=== PATIENT | male | born 1975 | race Caucasian/White ===

== ENCOUNTER 2021-07-21 00:20 | Day surgery (SDC) | payer MEDICARE, SELFPAY ==
[2021-04-16 14:30] VITALS: BMI 35.4
[2021-07-16 14:40] VITALS: BMI 35.4
[2021-07-21] VITALS (8 sets, daily range): BP systolic 116–136; BP diastolic 67–97; PULSE 71–82; RESP 10–20; TEMP 36.2–36.4; O2SAT 94–100; BMI 35.8
--- NOTE | 2021-07-21 09:59 | ECG_ITS ---
Measurements Intervals [place] Rate: 68 P: 52 PA: 168 QRS: -10 QRSD: 97 T: 5 QT: 381 QTc: 406 Interpretive Statements SINUS RHYTHM LOW QRS VOLTAGE IN PRECORDIAL LEADS BASELINE ARTIFACT- I, III BORDERLINE ECG Electronically Signed On 07-21-2021 10:47:19 CDT by Remi Magdaleno D.O.
[2021-07-21 10:02] LABS: Glucose Point of Care 146 mg/dl (65-105)
[2021-07-21] MEDS: LACTATED RINGERS 1,000 ML 30 ML IV CONT ×2 (10:25→12:21)
[2021-07-21] MEDS: ACETAMINOPHEN 500 MG TABLET 1000 MG PO (10:32)
[2021-07-21] MEDS: KETOROLAC 15 MG/ML VIAL (*BKC) IV PUSH (10:35)
--- NOTE | 2021-07-21 11:05 | PM.IMHP ---
H&P: HPI History of Present Illness Date/Time: 07/21/21 11:05 Chief Complaint: Ventral hernia Narrative: This is a 45-year-old man who presents for ventral hernia repair. He denies any changes since last seen in office. Review of Systems Review of Systems: All systems reviewed & are unremarkable except as noted in HPI and below Constitutional: Constitutional: Denies chills, Denies fever(s), Denies headache(s) and Denies weight loss Eyes: Eyes: Denies change in vision ENT: Denies dizziness, Denies headache(s), Denies neck mass and Denies throat swelling Cardiovascular: Cardiovascular: Denies chest pain, Denies lightheadedness and Denies dyspnea Respiratory: Respiratory: Denies cough, Denies dyspnea and Denies wheezing Gastrointestinal: Gastrointestinal: Denies abdominal pain, Denies change in bowel habits, Denies nausea and Denies vomiting Genitourinary: Genitourinary: Denies hematuria and Denies dysuria Musculoskeletal: Musculoskeletal: Reports as per HPI Integumentary/Breasts: Skin/Breast: Reports as per HPI Neurologic: Denies dizziness and Denies headache(s) Allergic/Immunologic: Allergic/Immunologic: Denies throat swelling and Denies wheezing PMFSH Past Medical History Medical History Advanced osteoarthritis of spine Diabetes mellitus GERD (gastroesophageal reflux disease) Surgical History Surgical History History of fusion of thoracic spine History of lumbar fusion posterior approach Hx of appendectomy Hx of knee surgery Family History Family History Father Exposure to Agent [place] Mother Lung cancer Sibling Anabolic steroid abuse Social History Social History Smoking status: Never smoker Alcohol intake: never Substance use: never Substance use type: does not use Living arrangements: with family Additional living arrangements comments: Spiritual care concerns: No Meds Home Medications and Allergies Home Medications Medication Instructions Recorded Confirmed Type insulin degludec 100 unit/mL 20 unit SUBCUT QAM 04/09/21 07/16/21 History subcutaneous solution montelukast 10 mg tablet 10 mg PO HS 04/09/21 07/16/21 History pantoprazole 40 mg tablet,delayed 40 mg PO HS 04/09/21 07/16/21 History release albuterol sulfate [Ventolin HFA] 2 puff INHALATION Q6-8H PRN 04/16/21 07/16/21 History etodolac 500 mg PO HS 04/16/21 07/16/21 History gabapentin 100 mg PO QAM 04/16/21 07/16/21 History ondansetron HCl 8 mg PO QAM 04/16/21 07/16/21 History cetirizine 10 mg PO DAILY 07/16/21 07/16/21 History insulin aspart U-100 [Novolog 1 sliding scale dose SUBCUT 07/16/21 07/16/21 History Flexpen U-100 Insulin] USEASDIRECTD Allergies Allergy/AdvReac Type Severity Reaction Status Date / Time No Known Allergies Allergy Verified 07/21/21 10:03 Exam Const: General: no acute distress and alert Orientation/consciousness: patient oriented x3 HENMT: Head: normocephalic and atraumatic Ears: hearing grossly normal bilaterally General nose exam: Normal nares present Mouth: Yes Normal oral and palatal mucosa present Eyes: Periorbital: periorbital findings normal Sclera: sclerae normal EOM: EOMs intact bilaterally Neck: Neck: normal visual inspection, no lymphadenopathy and trachea midline Chest: Chest palpation & inspection: normal inspection of the chest Resp: Effort & Inspection: normal respiratory effort Auscultation: clear to auscultation bilaterally Cardio: Jugular venous distension: no JVD Rate: regular rate Rhythm: regular rhythm Heart sounds: S1 normal heart sound present and S2 normal heart sound present Peripheral pulses: Peripheral pulses 2+ throughout GI: Inspection: normal to inspection GI Palp: Yes
--- NOTE | 2021-07-21 11:07 | WPDHPUPDATE1 ---
History and Physical Update Update Date/Time: 07/21/21 11:07 History and Physical has been reviewed, including an updated exam of the patient. There are NO changes in the patient's condition. Risks, benefits, and alternatives have been discussed and questions answered. Patient agrees to proceed with procedure.
--- NOTE | 2021-07-21 11:10 | SUR.PREOP ---
1110- Updated patient start time for procedure will be delayed. Patient verbalized understanding.
--- NOTE | 2021-07-21 11:21 | WPDANESEPPF ---
Anes - Initial Pre Proc Eval Procedure: Operation Date: 04/29/21 10:30 Proposed Procedures p Ventral Hernia Repair with Mesh - Arthur Kramer DO Operation Date: 07/21/21 11:00 Proposed Procedures p Ventral Hernia Repair with Mesh - Arthur Kramer DO Date/Time: 07/21/21 11:21 Surgeon: Arthur Kramer DO Pre Op Diagnosis: ventral hernia Patient Data Age: 45 Gender: M Height: 1.75 m Weight: 110.1 kg Allergies Allergy/AdvReac Type Severity Reaction Status Date / Time No Known Allergies Allergy Verified 07/21/21 10:03 Home Medications Medication Instructions Recorded Confirmed Type insulin degludec 100 unit/mL 20 unit SUBCUT QAM 04/09/21 07/16/21 History subcutaneous solution montelukast 10 mg tablet 10 mg PO HS 04/09/21 07/16/21 History pantoprazole 40 mg tablet,delayed 40 mg PO HS 04/09/21 07/16/21 History release albuterol sulfate [Ventolin HFA] 2 puff INHALATION Q6-8H PRN 04/16/21 07/16/21 History etodolac 500 mg PO HS 04/16/21 07/16/21 History gabapentin 100 mg PO QAM 04/16/21 07/16/21 History ondansetron HCl 8 mg PO QAM 04/16/21 07/16/21 History cetirizine 10 mg PO DAILY 07/16/21 07/16/21 History insulin aspart U-100 [Novolog 1 sliding scale dose SUBCUT 07/16/21 07/16/21 History Flexpen U-100 Insulin] USEASDIRECTD Laboratory Tests 07/21/21 09:58 POC Capillary Glucose 146 mg/dl H mg/dl (65-105) Patient hx anesthesia problems: none Family hx anesthesia problems: none Results Review: All pre-operative results and documents have been reviewed as part of the pre-operative evaluation. [facility] Past Medical History Medical History Advanced osteoarthritis of spine Diabetes mellitus GERD (gastroesophageal reflux disease) Surgical History Surgical History History of fusion of thoracic spine History of lumbar fusion posterior approach Hx of appendectomy Hx of knee surgery Family History Family History Father Exposure to Agent [place] Mother Lung cancer Sibling Anabolic steroid abuse Social History Social History Smoking status: Never smoker Alcohol intake: never Substance use: never Substance use type: does not use Living arrangements: with family Additional living arrangements comments: Spiritual care concerns: No Anes - Eval Final PreProcedure Day of Procedure 07/21/21 11:21 Patient weight: obese Heart: regular rate and rhythm Lungs: clear to auscultation Airway: Mallampati scale class III Neurological: alert and oriented Last oral intake: >/= 8 hours ASA classification: II Emergent: no Anesthetic plan: proceed Anesthesia type and monitoring: general LMA and standard monitoring Results Review: All pre-operative results and documents have been reviewed as part of the pre-operative evaluation. Informed Consent: The patient's anesthetic plan and its attendant risks and benefits were discussed with the patient/family/POA. Questions were solicited and answers provided to the satisfaction of the patient/family/POA.
[2021-07-21] MEDS: ceFAZolin 2 GM/D5W 50 ML 2 GM/50 ML BAG IVPB (11:28)
[2021-07-21] MEDS: BUPIVACAINE HCL 0.5% PF 30 ML VIAL INFILTRATE (11:55)
--- NOTE | 2021-07-21 12:31 | W.PM.PROC2 ---
Procedure Note - Detailed Date of Procedure 07/21/21 Pre-op Diagnosis ventral hernia Post-op Diagnosis same Procedure Performed Open ventral hernia repair with 6.6 cm Parietex ventral patch Surgeon Arthur Kramer, DO Anesthesia general and local (0.5% bupivacaine) Indications This is a 45-year-old man who presents with a gradually enlarging bulge near his umbilicus. This has been present for several years, but recently has become larger. He is also having some intermittent discomfort associated with the hernia. The ventral periumbilical hernia was identified on physical exam. Discussions were made with the patient about treatment options and decision was made to proceed with open ventral hernia repair with mesh. Findings Open ventral hernia repair was performed. Patient was found to have a 2 cm ventral hernia located just superior to the umbilical stalk. The hernia contained omentum. The hernia sac and omentum was excised and sent to the lab for pathology. A preperitoneal pocket was created and then 6.6 cm Parietex ventral patch was placed. The mesh was secured with 0 Ethibond U stitch transfascial sutures. Description of Procedure Procedure as well as risks, benefits, and alternatives were discussed with the patient. Written consent was obtained and placed in chart prior to procedure. Patient was brought back to surgical suite. He was placed supine on operating table. He was then intubated by Anesthesia Department. His abdomen was prepped and draped in sterile fashion using chlorhexidine prep. 0.5% bupivacaine with epinephrine was infiltrated locally around the operative area. A 4 cm curvilinear incision was made just superior to the umbilicus using a 15 blade scalpel. Electrocautery was used for hemostasis and for dissection down through the subcutaneous fat. Hernia sac was encountered and this was carefully freed up from surrounding subcutaneous fat using electrocautery. The hernia sac was freed up all the way down to the level of the fascia, and then it was transected using electrocautery. The hernia sac was excised and sent to the lab for pathology. The umbilical stalk was then lifted off of the fascia with electrocautery. The hernia defect was then measured. This was measuring approximately 20 mm. The decision was made to use a 6.6 cm Parietex ventral patch. The peritoneum was cleared under the fascia circumferentially around the hernia using blunt dissection and electrocautery. Once a wide enough pocket was created for the mesh, the mesh was then placed within this preperitoneal pocket and laid out flat centered on the hernia defect. The mesh appeared to be sitting in proper position. The mesh was then secured at the 4 corners using 0 Ethibond U-stitch trans fascial sutures. Once all 4 sutures were placed, the mesh was lifted up against the abdominal wall and appeared to be properly centered on the hernia defect. The fascia of the hernia defect was then reapproximated over the mesh using 0 Ethibond [id number] sutures. The 4 transfascial sutures were then tied down in place. The repair was inspected and appeared secure. 0.5% bupivacaine with epinephrine was infiltrated around the fascia and subcutaneous space. The umbilical stalk was then reapproximated to the fascia using a 3 0 Vicryl simple interrupted suture. The deep dermis was reapproximated using 3 0 Vicryl simple interrupted sutures, and then the skin was approximated using 4 Monocryl running subcuticular suture. Exofin glue was then applied on top. The patient was then awakened from anesthesia, extubated, and transferred to recovery. Implants 6.6 cm Parietex ventral patch Estimated Blood Loss 5 Pathology yes (Hernia sac) Complications No immediate complications Condition stable Disposition same day
[2021-07-21 13:08] LABS: Glucose Point of Care 155 mg/dl (65-105)
== END 2021-07-21 14:15 | disposition home or self-care (01) ==
PROVIDERS: PCP Emergency Medicine; Visit Provider Surgery
PROC: 0WQF0ZZ Repair Abdominal Wall, Open Approach (ICD-10-PCS; CPT 49568; principal; 2021-07-21 11:00)
DX: K43.6 Other and unspecified ventral hernia with obstruction, without gangrene (principal); Z79.4 Long term (current) use of insulin; Z79.51 Long term (current) use of inhaled steroids; E11.9 Type 2 diabetes mellitus without complications; M47.9 Spondylosis, unspecified; K21.9 Gastro-esophageal reflux disease without esophagitis; E66.9 Obesity, unspecified; Z68.35 Body mass index [BMI] 35.0-35.9, adult
CPT/HCPCS: 49568; 49561; 82948; 88302; 93005; A9270; C1781; J0690; J1885; J2250; J3010; J7120

== ENCOUNTER 2021-10-26 11:11 | Emergency (ER) | payer MEDICARE, SELFPAY ==
[2021-10-26 11:19] VITALS: BP 150/75; PULSE 94; RESP 16; TEMP 36.5; O2SAT 100
--- NOTE | 2021-10-26 11:56 | ED.GENADULT ---
HPI - General Adult General Chief complaint: Urogenital-Male Stated complaint: Hematuria Time Seen by Provider: 10/26/21 11:45 History of Present Illness HPI narrative: Patient is a 46-year-old male with history of recent ureter stent placement who comes to the ED today complaining of pain in left flank. Patient reports over the last few days has been feeling weak, he has been having hematuria for the last 2 days as well as left flank pain. Patient reports he was diagnosed with kidney stone about a month ago, he was followed by urology, had stent placement done on October [address] Tesfaye. Related Data Home Medications Medication Instructions Recorded Confirmed insulin degludec 100 unit/mL 20 unit SUBCUT QAM 04/09/21 08/07/21 subcutaneous solution montelukast 10 mg tablet 10 mg PO HS 04/09/21 08/07/21 pantoprazole 40 mg tablet,delayed 40 mg PO HS 04/09/21 08/07/21 release albuterol sulfate [Ventolin HFA] 2 puff INHALATION Q6-8H PRN 04/16/21 08/07/21 etodolac 500 mg PO HS 04/16/21 08/07/21 gabapentin 100 mg PO QAM 04/16/21 08/07/21 ondansetron HCl 8 mg PO QAM 04/16/21 08/07/21 cetirizine 10 mg PO DAILY 07/16/21 08/07/21 insulin aspart U-100 [Novolog 1 sliding scale dose SUBCUT 07/16/21 08/07/21 Flexpen U-100 Insulin] USEASDIRECTD Allergies Allergy/AdvReac Type Severity Reaction Status Date / Time adhesive tape Allergy Mild Rash Verified 08/07/21 16:57 Review of Systems Constitutional: Constitutional: Reports as per HPI, Denies fever(s), Denies night sweats and Denies weakness Cardiovascular: Cardiovascular: Denies chest pain, Denies edema, Denies leg edema, Denies dyspnea and Denies orthopnea Respiratory: Respiratory: Denies cough and Denies dyspnea Gastrointestinal: Gastrointestinal: Denies abdominal pain, Denies constipation, Denies diarrhea, Denies nausea and Denies vomiting Comments: See HPI for left flank pain Genitourinary: Comments: See HPI for hematuria Musculoskeletal: Musculoskeletal: Denies abnormal gait, Denies back pain, Denies numbness and Denies tingling Neurologic: Denies Abnormal speech present, Denies abnormal gait, Denies numbness, Denies tingling and Denies weakness Psychiatric: Psychiatric: Denies homicidal ideation and Denies suicidal ideation [facility] Past Medical History Medical History Advanced osteoarthritis of spine Diabetes mellitus GERD (gastroesophageal reflux disease) Surgical History Surgical History H/O ventral hernia repair 07/21/21 Open ventral hernia repair with 6.6 cm Parietex ventral patch History of fusion of thoracic spine History of lumbar fusion posterior approach Hx of appendectomy Hx of knee surgery Family History Family History Father Exposure to Agent [place] Mother Lung cancer Sibling Anabolic steroid abuse Social History Social History Smoking status: Never smoker Alcohol intake: never Substance use: never Substance use type: does not use Additional living arrangements comments: Spiritual care concerns: No Exam Narrative: Well-appearing. Const: General: cooperative, healthy appearing, comfortable, no acute distress, well developed, alert, awake and Physically active Orientation/consciousness: patient oriented x3 HENMT: Head: normal to inspection, normocephalic and atraumatic Ears: external ears normal General nose exam: Normal external nose present Eyes: Pupils: Equal, round and reactive pupils present EOM: EOMs intact bilaterally Neck: Neck: normal visual inspection Chest: Chest palpation & inspection: normal inspection of the chest and no tenderness Resp: Effort & Inspection: normal respiratory effort and able to speak in complete sentences Auscultation: clear t
--- NOTE | 2021-10-26 12:11 | PC.NURSE ---
Pt refusing to wait in waiting room - seen by He Kaplan while in triage. Informed pt that pt's are unable to go to their cars and wait due to the volume of pt's already waiting and nurses needing to manage pt's while in waiting room. He states sitting down is worse and he needs to recline - informed him of no recliners available. He decided to leave
[2021-10-26 12:16] VITALS: RESP 16
== END 2021-10-26 12:17 | disposition left against medical advice (07) ==
PROVIDERS: PCP Emergency Medicine
DX: R10.9 Unspecified abdominal pain (principal); E11.9 Type 2 diabetes mellitus without complications; K21.9 Gastro-esophageal reflux disease without esophagitis; Z98.1 Arthrodesis status; Z96.0 Presence of urogenital implants; Z79.4 Long term (current) use of insulin
CPT/HCPCS: 99281